=== PATIENT | female | born 1960 | race Caucasian/White ===

== ENCOUNTER 2019-07-12 07:36 | Day surgery (SDC) | payer BC ==
[2019-07-12] MEDS ORDERED: Lactated Ringers 1,000 ML IV ONE (07:55)
[2019-07-12] MEDS ORDERED: Lactated Ringers 1,000 ML IV SCH (08:00)
--- NOTE | 2019-07-12 08:12 | HP ---
DATE OF SURGERY: 07/12/2019 HISTORY OF PRESENT ILLNESS: The patient is a 58 year-old with diarrhea off and on, rectal bleeding and lower abdominal cramping unclear etiology. She was not sure whether family with colon cancer or not. She denied any stomach or esophageal cancer. No prior colonoscopy. Given her abdominal pain, rectal bleeding and change in bowel habits, she is in need of upper and lower endoscopy for further evaluation to evaluate for gastritis, peptic ulcer disease, celiac disease, inflammatory bowel disease, colitis or other etiology. She denied any prior colonoscopy. PAST MEDICAL HISTORY: Asthma. Hypertension. PAST SURGICAL HISTORY: Menan teeth in the past. Tonsillectomy and adenoidectomy in the past. Endometrial ablation in the past and cyst removed at the time. MEDICATIONS: Allergy medicine, Singulair, hydrochlorothiazide. ALLERGIES: NO SPECIFIC DRUG. POLLEN. ANIMAL DANDER. FAMILY HISTORY: As mentioned above. SOCIAL HISTORY: No smoking or alcohol abuse. REVIEW OF SYSTEMS: Fourteen systems reviewed. No chest pain or palpitations. Other systems negative or noncontributory as above and per preadmission questionnaire. LAB DATA AND TESTS: She had a CT show some duodenal jejunal bowel wall thickening favoring enteritis in the past. PHYSICAL EXAMINATION: GENERAL: No acute distress. HEENT: Sclerae nonicteric. NECK: No JVD. CHEST: Equal excursion, nonlabored breathing. CVS: Regular rate and rhythm. ABDOMEN: Soft. No peritoneal signs. EXTREMITIES: No significant edema. NEURO: Alert, oriented, moving extremities symmetrically. No gross motor deficits noted. RECTAL: Deferred timed to endoscopy exam. IMPRESSION: Abdominal pain, rectal bleeding, change in bowel habits. She is in need of EGD and colonoscopy for further evaluation. Risks and benefits explained in detail but not limited to bleeding or infection, risk of bowel injury or perforation possibly requiring open procedure, risk of missed or nondiagnosis or incomplete exam possibly requiring barium enema, other studies or procedures, possibility of inability to diagnose the etiology of her symptoms. She understands and agrees to the planned procedure, will proceed with EGD and colonoscopy as an outpatient.
[2019-07-12] MEDS ORDERED: DIPRIVAN 200 MG/20 ML IV ONE ×2 (08:27→08:57)
[2019-07-12] MEDS ORDERED: Versed 2 MG/2 ML Injection ONE (08:27)
[2019-07-12 09:44] VITALS: O2SAT 98
[2019-07-12 10:15] VITALS: BP 145/89; PULSE 68
--- NOTE | 2019-07-12 14:13 | OP ---
SURGERY DATE/TIME: 07/12/2019827 PREOPERATIVE DIAGNOSIS: History of diarrhea, abdominal pain, rectal bleeding, reflux, need for upper and lower endoscopy. POSTOPERATIVE DIAGNOSES: 1) Minimal to mild gastritis. 2) Short segment distal gastroesophagitis. 3) Diverticulosis. 4) Colon polyps. 5) Fair bowel prep. 6) Small internal and external hemorrhoids. PROCEDURES: 1) EGD with cold biopsy cold biopsy of antrum to evaluate for Helicobacter pylori. 2) Cold biopsy of esophagus to evaluate short segment distal gastroesophagitis. 3) Colonoscopy to cecum (distal part of the terminal ileum was grossly unremarkable). 4) Hot snare polypectomy small sigmoid colon polyp. 5) Hot snare polypectomy small rectosigmoid polyp. 6) Hot biopsy small ascending colon polyp. 7) Hot biopsy small sigmoid colon polyp. 8) Hot biopsy additional small rectosigmoid polyp. SURGEON: Dr. Adilson Chapman. ANESTHESIA: MAC. ESTIMATED BLOOD LOSS: Minimal. INDICATIONS: As noted above. Risks and benefits explained in detail and not limited to and consent obtained. DESCRIPTION OF PROCEDURE AND FINDINGS: The patient is taken to the operating room. MAC anesthesia introduced. After official time out and no disagreement with planned procedure, bite block positioned. Video gastroscope easily passed down the esophagus through the patent pylorus to the junction to the junction of second and third portion of the duodenum. Second and third portion of the duodenum grossly unremarkable. Given her symptom complaints, cold biopsy taken to evaluate for celiac sprue. Good hemostasis noted. Scope pulled back in the stomach. She had some minimal to mild gastritis. Cold biopsy taken to evaluate for Helicobacter pylori. Good hemostasis noted. On retroflex the gastroesophageal junction seemed to be snug against the scope. There did not appear to be any evidence of any large hiatal hernia. Scope was straightened and pulled back to the gastroesophageal junction. It was about 38 to 39 cm. There was a little bit of inflammation here with a short segment distal esophagitis. Cold biopsy taken in this area. Good hemostasis noted. The remainder of the esophagus grossly unremarkable. No signs of any obvious mucosal lesions. The scope is withdrawn. The patient tolerated this part of the procedure well. Attention was then turned to colonoscopy. Digital rectal exam did not reveal any rectal masses. She did have some small internal and external hemorrhoids. Video colonoscope inserted and passed up through the tortuous sigmoid, descending, transverse and ascending colon around to the cecum. Appendiceal orifice well visualized. The very tip of the terminal ileum was grossly unremarkable. The prep overall was fair with a little bit of liquidy semi-solid stool suctioned and irrigated as clear as possible just slightly limiting the exam for very small lesions. The scope is slowly and carefully withdrawn over the next 15 minutes stopping to remove a small polyp in the ascending colon with hot biopsy forceps with brief bursts of cautery. Good hemostasis noted. Slowly and carefully pulling back through the colon, she had some diverticulosis in the left colon, the sigmoid colon. Small polyp removed with hot biopsy forceps with brief bursts of cautery. Good hemostasis noted. There was a 4 or 5 mm polyp removed with hot snare polypectomy with brief bursts of cautery. The staff said they did retrieve the specimen. Good hemostasis noted. Scope pulled back to the rectosigmoid colon. Another small polyp removed with hot biopsy forceps with brief bursts of cautery. Good hemostasis noted. A little bit larger polyp removed with hot snare polypectomy with brief bursts of cautery elevating well away from the bowel wall. Good hemostasis noted. Otherwise she had some small internal and external hemorrhoids. The mucosa itself was grossly unremarkable. No lilliana signs of any obvious lilliana colitis to suggest etiology, just the small polyps, mild diverticulosis and small internal and external hemorrhoids. The scope is withdrawn. There was no family to discuss the findings with. I will see her back in the office next week to go over the results.
== END 2019-07-12 10:20 | disposition home or self-care (01) ==
LOC: SDC 07:36
PROVIDERS: ATTEND Surgery
DX: K29.70 Gastritis, unspecified, without bleeding (principal); D12.2 Benign neoplasm of ascending colon; D12.8 Benign neoplasm of rectum; K20.9 Esophagitis, unspecified; K57.30 Diverticulosis of large intestine without perforation or abscess without bleeding; R19.7 Diarrhea, unspecified; R10.9 Unspecified abdominal pain; K64.4 Residual hemorrhoidal skin tags; K64.8 Other hemorrhoids; I10 Essential (primary) hypertension; Z79.899 Other long term (current) drug therapy
CPT/HCPCS: J2250; J2704